=== PATIENT | female | born 1995 | race Caucasian/White ===

== ENCOUNTER 2017-03-11 13:36 | Emergency (ER) | payer OTHER ==
[~2017-03-11] VITALS: Ht 165.1 cm; Wt 84.0 kg
[2017-03-11] MEDS ORDERED: HYDROCODONE/ACETAMINOPHEN 5/325MG TABLET PO ONE (16:15)
[2017-03-11 17:10] VITALS: BP 127/76
== END 2017-03-11 18:18 | disposition home or self-care (01) ==
LOC: ER 13:54
DX: S62.631A Displaced fracture of distal phalanx of left index finger, initial encounter for closed fracture (principal); Q78.0 Osteogenesis imperfecta; F17.200 Nicotine dependence, unspecified, uncomplicated; F12.10 Cannabis abuse, uncomplicated; X50.9XXA Other and unspecified overexertion or strenuous movements or postures, initial encounter; Y93.89 Activity, other specified; Y92.89 Other specified places as the place of occurrence of the external cause; Y99.8 Other external cause status
CPT/HCPCS: 29130; 73140; 99284

== ENCOUNTER 2018-03-10 05:53 | Inpatient (IN) | payer OTHER, MEDICAID ==
[~2018-03-10] VITALS: Ht 170.2 cm; Wt 117.9 kg
[2018-03-10] MEDS ORDERED: DEXT 5%/LR + PITOCIN 20UNITS/L 1,000 ML IV SCH ×2 (06:13→10:36)
[2018-03-10] MEDS ORDERED: PNV1TABL76 MT (06:13)
[2018-03-10] MEDS ORDERED: METHYLERGONOVINE MALEATE 0.2 MG/ML IM PRN (06:15)
[2018-03-10] MEDS ORDERED: NALOXONE HCL 0.4 MG/ML 1ML VIAL IM PRN (06:15)
[2018-03-10] MEDS ORDERED: CARBOPROST TROMETHAMINE 250 MCG/ML AMPUL IM PRN (06:15)
[2018-03-10] MEDS: LACTATED RINGERS 1,000 ML IV SCH ×2 (06:54→07:09)
[2018-03-10 07:14] LABS: BASOPHILS % 0.3 % (0.0-2.0); EOSINOPHILS % 1.3 % (0.0-5.0); HEMATOCRIT. 36.7 % (36.0-48.0); HEMOGLOBIN. 12.1 g/dL (12.0-16.0); LYMPHOCYTES % 17.9 % (20.0-50.0); MEAN CORPUSCULAR HEMOGLOBIN 25.4 pg (28.0-32.0); MEAN CORPUSCULAR VOLUME 77.3 fL (81.0-99.0); MEAN PLATELET VOLUME 9.3 fl (7.4-10.4); MONOCYTES % 6.4 % (2.0-8.0); NEUTROPHILS % 74.1 % (40.0-76.0); PLATELET 210 x1000/uL (130-400); RED BLOOD CELL COUNT 4.75 mill/uL (4.2-5.4)
[2018-03-10] MEDS ORDERED: CITRIC ACID/SODIUM CITRATE SOLN 30ML UDC PO SCH (07:15)
[2018-03-10 07:18] LABS: INR 0.9; PARTIAL THROMBOPLASTIN TIME 29.9 sec (23.4-31.0); PROTHROMBIN TIME 9.5 sec (9.4-11.6)
[2018-03-10 07:47] LABS: KETONES URINE TRACE (NEGATIVE); LEUKOCYTE ESTERASE URINE TRACE (NEGATIVE); NITRITE URINE NEGATIVE (NEGATIVE); OCCULT BLOOD URINE 1+ (NEGATIVE); PROTEIN URINE NEGATIVE (NEGATIVE); SPECIFIC GRAVITY URINE 1.012 (1.005-1.030); UROBILINOGEN URINE 0.2 E.U./dL (0.2-1.0)
[2018-03-10 07:49] LABS: CLARITY URINE SL HAZY (CLEAR); COLOR URINE YELLOW (YELLOW)
[2018-03-10] MEDS ORDERED: METOCLOPRAMIDE HCL 10MG/2ML VIAL ONE (08:13)
[2018-03-10] MEDS ORDERED: PROPOFOL 200MG/20ML VIAL IV ONE (08:13)
[2018-03-10] MEDS ORDERED: ONDANSETRON HCL 4MG/2ML VIAL ONE (08:13)
[2018-03-10] MEDS ORDERED: SUCCINYLCHOLINE CHLORIDE 200MG/10ML VIAL IV ONE (08:13)
[2018-03-10] MEDS ORDERED: EPHEDRINE SULFATE 50MG/ML VIAL ONE (08:13)
[2018-03-10] MEDS ORDERED: LIDOCAINE HCL 1% 20ML VIAL (Pyxis) INJ ONE (08:13)
[2018-03-10] MEDS ORDERED: CEFAZOLIN 2000MG PREMIX 100 ML IV ONE (08:14)
[2018-03-10] MEDS ORDERED: GLYCOPYRROLATE 0.2 MG/ML 2ML VIAL ONE (08:14)
[2018-03-10] MEDS ORDERED: PHENYLEPHRINE HCL 10 MG/ML 1ML (IV VIAL) IV ONE (08:14)
[2018-03-10 08:17] LABS: *AMPHETAMINES SCREEN URINE NEGATIVE (NEGATIVE); *BARBITURATES SCREEN URINE NEGATIVE (NEGATIVE); *BENZODIAZEPINES SCREEN URINE NEGATIVE (NEGATIVE); *COCAINE SCREEN URINE NEGATIVE (NEGATIVE); CANNABINOID URINE SCREEN NEGATIVE (NEGATIVE); METHADONE URINE SCREEN NEGATIVE (NEGATIVE); OPIATES URINE SCREEN NEGATIVE (NEGATIVE)
[2018-03-10 08:19] LABS: PHENCYCLIDINE URINE SCREEN NEGATIVE (NEGATIVE)
[2018-03-10] MEDS ORDERED: MORPHINE SULFATE/PF 1MG/ML 10ML AMP ONE (08:25)
[2018-03-10] MEDS ORDERED: FENTANYL CITRATE/PF 50MCG/ML 2ML VIAL ONE (08:25)
[2018-03-10] MEDS ORDERED: OXYTOCIN 10 UNITS/ML 1ML ONE (10:03)
[2018-03-10] MEDS ORDERED: MIDAZOLAM HCL 2 MG/2 ML VIAL ONE (10:17)
[2018-03-10] MEDS ORDERED: DIPHENHYDRAMINE 50MG/ML VIAL ONE (10:19)
[2018-03-10] MEDS ORDERED: KETOROLAC 60MG/2ML VIAL IM ONE (10:29)
[2018-03-10] MEDS ORDERED: LANOLIN OINT 0.25 GM TUBE TOP PRN (10:45)
[2018-03-10] MEDS ORDERED: BUTORPHANOL TARTRATE 2 MG/ML VIAL IV PRN (10:45)
[2018-03-10] MEDS ORDERED: DIPHENHYDRAMINE 50MG/ML VIAL IV PRN (10:45)
[2018-03-10] MEDS ORDERED: BISACODYL 10MG SUPP PR PRN (10:45)
[2018-03-10] MEDS ORDERED: RHO(D) IMMUNE GLOBULIN 300 MCG/SYR IM PRN (10:45)
[2018-03-10] MEDS ORDERED: HEMORRHOIDAL SUPP PR PRN (10:45)
[2018-03-10] MEDS ORDERED: NALOXONE HCL 0.4 MG/ML 1ML VIAL IV PRN (10:45)
[2018-03-10] MEDS ORDERED: ONDANSETRON HCL 4MG/2ML VIAL IV PRN (10:45)
[2018-03-10] MEDS ORDERED: HYDROCODONE/ACETAMINOPHEN 5/325MG TABLET PO PRN (10:45)
[2018-03-10 12:03] LABS: HEPATITIS B SURFACE ANTIGEN NEGATIVE; RUBELLA IGG 123.6 IU/mL (4.99-10)
[2018-03-10] MEDS: MAGNESIUM/ALUMINUM HYDROXIDE/SIMETHICONE 30ML UDC PO SCH ×3 (12:10→20:33)
[2018-03-10] MEDS: SIMETHICONE 80MG TABLET CHEW PO SCH ×3 (12:40→20:34)
[2018-03-10 13:05] VITALS: BP 137/79
[2018-03-10] MEDS ORDERED: LACTATED RINGERS 1,000 ML IV SCH (13:15)
[2018-03-10 14:04] VITALS: BP 141/77
[2018-03-10] MEDS: KETOROLAC 30MG/ML VIAL IV PRN ×2 (17:01→23:14)
[2018-03-10 19:05] VITALS: BP 127/85
[2018-03-10] MEDS: DOCUSATE SODIUM 100MG CAPSULE PO SCH (20:33)
[2018-03-10 23:00] VITALS: BP 135/82
[2018-03-11 03:25] VITALS: BP 122/83
[2018-03-11] MEDS: ACETAMINOPHEN WITH CODEINE 300/30MG TABLET PO PRN ×2 (03:39→15:24)
[2018-03-11 05:52] VITALS: BP 127/82
[2018-03-11 07:06] LABS: BASOPHILS % 0.4 % (0.0-2.0); EOSINOPHILS % 1.1 % (0.0-5.0); HEMATOCRIT. 28.1 % (36.0-48.0); HEMOGLOBIN. 9.3 g/dL (12.0-16.0); LYMPHOCYTES % 16.4 % (20.0-50.0); MEAN CORPUSCULAR HEMOGLOBIN 25.5 pg (28.0-32.0); MEAN CORPUSCULAR VOLUME 77.2 fL (81.0-99.0); MEAN PLATELET VOLUME 9.2 fl (7.4-10.4); MONOCYTES % 6.8 % (2.0-8.0); NEUTROPHILS % 75.3 % (40.0-76.0); PLATELET 143 x1000/uL (130-400); RED BLOOD CELL COUNT 3.64 mill/uL (4.2-5.4)
[2018-03-11] MEDS: IBUPROFEN 400MG TABLET PO PRN ×2 (08:24→15:26)
[2018-03-11] MEDS: SIMETHICONE 80MG TABLET CHEW PO SCH ×4 (08:24→20:57)
[2018-03-11] MEDS: MAGNESIUM/ALUMINUM HYDROXIDE/SIMETHICONE 30ML UDC PO SCH ×4 (08:25→20:56)
[2018-03-11 09:44] VITALS: BP 126/75
[2018-03-11 16:00] VITALS: BP 122/81
[2018-03-11] MEDS: DOCUSATE SODIUM 100MG CAPSULE PO SCH (20:56)
[2018-03-11 22:00] VITALS: BP 124/72
[2018-03-12] MEDS: ACETAMINOPHEN WITH CODEINE 300/30MG TABLET PO PRN ×4 (02:51→21:49)
[2018-03-12 06:00] VITALS: BP 123/73
[2018-03-12 08:30] VITALS: BP 130/79
[2018-03-12] MEDS: SIMETHICONE 80MG TABLET CHEW PO SCH ×3 (08:54→21:37)
[2018-03-12 17:16] VITALS: BP 125/72
[2018-03-12 21:30] VITALS: BP 124/79
[2018-03-12] MEDS: DOCUSATE SODIUM 100MG CAPSULE PO SCH (21:37)
[2018-03-12] MEDS: MAGNESIUM/ALUMINUM HYDROXIDE/SIMETHICONE 30ML UDC PO SCH (21:38)
[2018-03-13 06:05] VITALS: BP 127/79
[2018-03-13 08:30] VITALS: BP 124/85
[2018-03-13] MEDS: IBUPROFEN 400MG TABLET PO PRN (08:57)
[2018-03-13] MEDS ORDERED: TETANUS, DIPHTHERIA, PERTUSSIS VAC/PF 0.5ML (>7YR OLD) IM ONE (11:30)
[2018-03-13] MEDS: ACETAMINOPHEN WITH CODEINE 300/30MG TABLET PO PRN (12:39)
== END 2018-03-13 13:10 | disposition home or self-care (01) | DRG 765 ==
LOC: L&D 05:53 → OBSVTOIN 05:53 → 7EST PP/OB 13:13
PROVIDERS: ADMIT Obstetrics & Gynecology; ATTEND Obstetrics & Gynecology
PROC: 10D00Z1 Extraction of Products of Conception, Low, Open Approach (ICD-10-PCS; principal; 2018-03-10 10:45)
DX: O99.89 Other specified diseases and conditions complicating pregnancy, childbirth and the puerperium (principal); D62 Acute posthemorrhagic anemia; Q78.0 Osteogenesis imperfecta; O32.1XX0 Maternal care for breech presentation, not applicable or unspecified; O90.81 Anemia of the puerperium; Z3A.39 39 weeks gestation of pregnancy; Z37.0 Single live birth
CPT/HCPCS: 36415; 80305; 81003; 85025; 85610; 85730; 86592; 86703; 86762; 86850; 86900; 87340; 88307; 90715; G0378; J0330; J0690; J1200; J1885; J2250; J2274; J2370; J2405; J2590; J2704; J2765; J3010; J3490; J7040; J7120; A4315

== ENCOUNTER 2024-03-20 16:45 | Emergency (ER) | payer MEDICAID, OTHER ==
[~2024-03-20] VITALS: Ht 170.2 cm; Wt 91.0 kg
[2024-03-20 17:00] VITALS: O2SAT 100
[2024-03-20] MEDS: IBUPROFEN 600MG TABLET PO ONE (19:24)
[2024-03-20] MEDS ORDERED: IBUP-2029 MT (20:46)
[2024-03-20 21:02] VITALS: BP 122/68; PULSE 100; RESP 16; TEMP 98.6
== END 2024-03-20 21:33 | disposition home or self-care (01) ==
LOC: ER 16:45
DX: S83.005A Unspecified dislocation of left patella, initial encounter (principal); X58.XXXA Exposure to other specified factors, initial encounter; Y93.89 Activity, other specified; Y92.89 Other specified places as the place of occurrence of the external cause; Y99.8 Other external cause status; Z98.890 Other specified postprocedural states
CPT/HCPCS: 81025; 73560; 99283; Z7610; L1830